=== PATIENT | female | born 1950 | race Caucasian/White ===

== ENCOUNTER 2018-03-09 14:17 | Emergency (ER) | payer BC, OTHER ==
[~2018-03-09 14:17] MED LIST: AMLO1TAB12 PO; ASCO500T8 PO; METO50TA9 PO; ROSU10TA PO
[2018-03-09 15:34] LABS: BASOPHILS % (AUTO) 0.6 % (0.0-5.0); EOSINOPHILS % (AUTO) 3.6 % (0.0-8.0); HEMATOCRIT 39.1 % (36-48); LYMPHOCYTES % (AUTO) 16.1 % (21.0-51.0); MEAN CORPUSCULAR HEMOGLOBIN 29.3 pg (27.0-33.0); MEAN CORPUSCULAR HGB CONC 33.4 g/dL (32.0-36.0); MEAN CORPUSCULAR VOLUME 87.8 fL (79-99); NEUTROPHILS % (AUTO) 73.7 % (40.0-77.0); PLATELET COUNT (AUTO) 327 K/uL (130-400); RED BLOOD CELL COUNT(AUTO) 4.46 MIL/uL (4.00-5.50); RED CELL DISTRIBUTION WIDTH 14.2 % (11.0-15.5); WHITE BLOOD COUNT (AUTO) 10.9 K/uL (4.8-10.8)
[2018-03-09 15:47] LABS: CREATININE 0.8 mg/dL (0.5-1.5); POTASSIUM 3.3 mmol/L (3.5-5.1)
[2018-03-09 15:51] LABS: APPEARANCE,URINE Clear (CLEAR); BILIRUBIN,URINE Negative (NEGATIVE); COLOR,URINE Yellow (YELLOW); GLUCOSE, URINE (UA) Negative (NEGATIVE); KETONES,URINE Negative (NEGATIVE); LEUKOCYTE ESTERASE ,URINE Moderate (NEGATIVE); NITRATE,URINE Negative (NEGATIVE); OCCULT BLOOD,URINE Trace (NEGATIVE); PH,URINE 6.5 (5.0-8.0); PROTEIN,URINE Negative (NEGATIVE)
[2018-03-09 15:52] LABS: ALBUMIN 3.5 g/dL (3.5-5.0); BILIRUBIN,TOTAL 0.3 mg/dL (0.2-1.0)
[2018-03-09 16:03] LABS: BACTERIA,URINE Rare /HPF (None Seen); RBC,URINE 0-1 /HPF (0-1)
[2018-03-09 16:05] LABS: SQUAMOUS EPITHELIAL CELL,UR Rare /HPF (0-2)
[2018-03-09 16:11] LABS: CREATINE KINASE, TOTAL 130 U/L (21-232); MYOGLOBIN 47 ng/mL (10-92); TROPONIN I < 0.04 ng/mL (0.00-0.06)
[2018-03-09 18:36] LABS: CREATINE KINASE, TOTAL 305 U/L (21-232); MYOGLOBIN 34 ng/mL (10-92); TROPONIN I < 0.04 ng/mL (0.00-0.06)
== END 2018-03-09 19:31 | disposition home or self-care (01) ==
LOC: EDH 14:17
DX: R07.89 Other chest pain (principal); R55 Syncope and collapse; R42 Dizziness and giddiness; E78.5 Hyperlipidemia, unspecified; I10 Essential (primary) hypertension; Z88.1 Allergy status to other antibiotic agents; Z88.2 Allergy status to sulfonamides; Z87.442 Personal history of urinary calculi
CPT/HCPCS: 36415; 70450; 71045; 72125; 80053; 81001; 82550; 83874; 84484; 85025; 93005

== ENCOUNTER → 2018-05-04 | Outpatient (CLI) | payer OTHER ==
[~2018-05-04] MED LIST changes: +REGADENOSON 0.4 MG/5 ML PF SYG IVP SCH
== END | disposition home or self-care (01) ==
LOC: RAH 08:57
PROVIDERS: ATTEND Family Medicine
DX: I25.119 Atherosclerotic heart disease of native coronary artery with unspecified angina pectoris (principal)
CPT/HCPCS: 78452; 93017; 96374; A9500 ×2; J2785

== ENCOUNTER → 2018-06-30 | Outpatient (CLI) | payer OTHER ==
[~2018-06-30] MED LIST changes: -REGADENOSON 0.4 MG/5 ML PF SYG IVP SCH
== END | disposition home or self-care (01) ==
LOC: RAH 09:03
PROVIDERS: ATTEND Neurological Surgery
DX: M48.02 Spinal stenosis, cervical region (principal); M47.22 Other spondylosis with radiculopathy, cervical region; M25.78 Osteophyte, vertebrae
CPT/HCPCS: 72141

== ENCOUNTER → 2018-08-04 | Outpatient (CLI) | payer OTHER ==
[~2018-08-04] MED LIST changes: +ALBU1.252 IH; -ASCO500T8 PO; +ASPI-1005 PO; +CETI-101 PO; +CHLO25TA3 PO; +CHOL100044 PO; +FLUT1AER IH; +GARL1TAB2 PO; +OMEP20TA25 PO; -ROSU10TA PO; +ROSU10TA22 PO
== END | disposition home or self-care (01) ==
LOC: OIH 09:04
PROVIDERS: ATTEND Neurological Surgery
DX: M47.812 Spondylosis without myelopathy or radiculopathy, cervical region (principal); M85.88 Other specified disorders of bone density and structure, other site; M25.78 Osteophyte, vertebrae; Z98.1 Arthrodesis status
CPT/HCPCS: 72040

== ENCOUNTER 2019-07-24 10:30 | Emergency (ER) | payer OTHER ==
[~2019-07-24 10:30] MED LIST changes: +APIX5TAB PO; +CEPH500T PO; -CETI-101 PO; +CETI-109 PO; -CHOL100044 PO; -GARL1TAB2 PO; +METO25 PO; -METO50TA9 PO
[2019-07-24] MEDS ORDERED: ASPIRIN 325 MG TABLET ONE (11:06)
[2019-07-24 11:22] LABS: BASOPHILS % (AUTO) 0.5 % (0.0-5.0); EOSINOPHILS % (AUTO) 4.4 % (0.0-8.0); LYMPHOCYTES % (AUTO) 18.6 % (21.0-51.0); MEAN CORPUSCULAR HEMOGLOBIN 28.5 pg (27.0-33.0); MEAN CORPUSCULAR HGB CONC 32.3 g/dL (32.0-36.0); MEAN CORPUSCULAR VOLUME 88.5 fL (79-99); MONOCYTES % (AUTO) 6.3 % (3.0-13.0); NEUTROPHILS % (AUTO) 69.7 % (40.0-77.0); PLATELET COUNT (AUTO) 315 K/uL (130-400); RED BLOOD CELL COUNT(AUTO) 4.52 MIL/uL (4.00-5.50); WHITE BLOOD COUNT (AUTO) 8.5 K/uL (4.8-10.8)
[2019-07-24 11:38] LABS: INR 0.87 (0.85-1.15); PARTIAL THROMBOPLASTIN TIME 24.8 SEC (26.3-35.5); PROTHROMBIN TIME 9.4 SEC (9.6-11.6)
[2019-07-24 11:45] LABS: CREATININE 0.9 mg/dL (0.5-1.5); POTASSIUM 3.4 mmol/L (3.5-5.1)
[2019-07-24 11:54] LABS: ALBUMIN 3.9 g/dL (3.5-5.0); BILIRUBIN,TOTAL 0.5 mg/dL (0.2-1.0); TOTAL PROTEIN, SERUM 7.9 g/dL (6.0-8.3)
[2019-07-24] MEDS ORDERED: IOHEXOL-350 75 ML VIAL IV ONE (12:09)
[2019-07-24 12:10] LABS: B-TYPE NATRIURETIC PEPTIDE 33 pg/mL (0-100)
== END 2019-07-24 14:48 | disposition home or self-care (01) ==
LOC: EDH 10:30
DX: R07.89 Other chest pain (principal); E78.5 Hyperlipidemia, unspecified; I10 Essential (primary) hypertension; Z88.2 Allergy status to sulfonamides
CPT/HCPCS: 36415; 71045; 71275; 76705; 80053; 82550; 83880; 84484; 85025; 85378; 85610; 85730; 93005; 99284; Q9967

== ENCOUNTER → 2020-11-19 | Outpatient (CLI) | payer MEDICARE ==
[~2020-11-19] MED LIST changes: -CETI-109 PO; +CETI-89 PO
== END | disposition home or self-care (01) ==
LOC: RAH 10:51
PROVIDERS: ATTEND Physician Assistant Medical
DX: Z12.31 Encounter for screening mammogram for malignant neoplasm of breast (principal)
CPT/HCPCS: 77067

== ENCOUNTER → 2022-03-15 | Outpatient (CLI) | payer MEDICARE ==
[~2022-03-15] MED LIST changes: +OMEP20TA20 PO; -OMEP20TA25 PO
== END | disposition home or self-care (01) ==
LOC: SHCH 10:16
PROVIDERS: ATTEND Internal Medicine Cardiovascular Disease
DX: R01.1 Cardiac murmur, unspecified (principal); E78.5 Hyperlipidemia, unspecified; I34.0 Nonrheumatic mitral (valve) insufficiency
CPT/HCPCS: 93306

== ENCOUNTER → 2023-01-11 | Outpatient (CLI) | payer MEDICARE ==
[~2023-01-11] MED LIST changes: +AMLO5TAB4 PO; +IBUP-1493 PO; +ONDA-104 PO; +TAMS-1 PO
== END | disposition home or self-care (01) ==
LOC: RAH 12:06
PROVIDERS: ATTEND Urology
DX: N20.0 Calculus of kidney (principal); M47.815 Spondylosis without myelopathy or radiculopathy, thoracolumbar region
CPT/HCPCS: 74018

== ENCOUNTER 2023-03-13 19:29 | Observation (INO) | payer MEDICARE ==
[~2023-03-13] VITALS: Ht 180.3 cm; Wt 99.8 kg
[2023-03-13] MEDS ORDERED: MORPHINE 4 MG SYG IM ONE (21:00)
[2023-03-13] MEDS ORDERED: HYDROCODONE/ACETAMINOPHEN 5/325 MG TAB PO PRN (23:00)
[2023-03-13] MEDS ORDERED: ALBUTEROL 0.083% 2.5 MG/3 ML INH IH PRN (23:00)
[2023-03-13] MEDS ORDERED: HYDRALAZINE 20MG/ML VIAL IV PRN (23:00)
[2023-03-13] MEDS ORDERED: MORPHINE 2 MG SYG IVP PRN (23:00)
[2023-03-13] MEDS ORDERED: ONDANSETRON 4MG INJ IVP PRN (23:00)
[2023-03-13] MEDS ORDERED: ACETAMINOPHEN 325 MG TAB PO PRN (23:00)
[2023-03-13 23:30] LABS: BASOPHILS # (AUTO) 0.04 K/uL (0.00-0.20); BASOPHILS % (AUTO) 0.2 % (0.0-5.0); EOSINOPHILS # (AUTO) 0.01 K/uL (0.00-0.70); EOSINOPHILS % (AUTO) 0.1 % (0.0-8.0); HEMATOCRIT 38.4 % (36-48); IMMATURE GRANULOCYTE ABSOLUTE 0.21 K/uL (0-1); LYMPHOCYTES # (AUTO) 2.4 K/uL (1.0-4.8); LYMPHOCYTES % (AUTO) 12.3 % (21.0-51.0); MEAN CORPUSCULAR HEMOGLOBIN 29.2 pg (27.0-33.0); MEAN CORPUSCULAR HGB CONC 32.8 g/dL (32.0-36.0); MEAN CORPUSCULAR VOLUME 89.1 fL (79-99); MONOCYTES # (AUTO) 1.2 K/uL (0.1-1.0); MONOCYTES % (AUTO) 6.5 % (3.0-13.0); NEUTROPHILS # (AUTO) 15.2 K/uL (1.8-7.7); NEUTROPHILS % (AUTO) 79.8 % (40.0-77.0); PLATELET COUNT (AUTO) 382 K/uL (130-400); RED BLOOD CELL COUNT(AUTO) 4.31 MIL/uL (4.00-5.50); RED CELL DISTRIBUTION WIDTH 14.5 % (11.0-15.5)
[2023-03-13 23:42] LABS: CREATININE 0.9 mg/dL (0.5-1.5); POTASSIUM 3.8 mmol/L (3.5-5.1)
[2023-03-13 23:43] LABS: INR < 0.93 (0.85-1.15); PROTHROMBIN TIME 10.4 SEC (9.6-11.6)
[2023-03-13 23:45] LABS: PARTIAL THROMBOPLASTIN TIME 24.3 SEC (26.3-35.5)
[2023-03-13 23:46] LABS: ALBUMIN 3.7 g/dL (3.5-5.0); BILIRUBIN,TOTAL 0.6 mg/dL (0.2-1.0); TOTAL PROTEIN, SERUM 7.6 g/dL (6.0-8.3)
[2023-03-14] MEDS: CEFAZOLIN SODIUM 1 GM VIAL IVPB SCH ×4 (01:28→20:59)
[2023-03-14 01:55] LABS: APPEARANCE,URINE CLEAR (CLEAR); BILIRUBIN,URINE NEGATIVE (NEGATIVE); COLOR,URINE LIGHT-YELLOW (YELLOW); GLUCOSE, URINE (UA) NEGATIVE (NEGATIVE); KETONES,URINE NEGATIVE (NEGATIVE); LEUKOCYTE ESTERASE ,URINE NEGATIVE Leu/uL (NEGATIVE); NITRATE,URINE NEGATIVE (NEGATIVE); PH,URINE 5.5 (5.0-8.0); PROTEIN,URINE NEGATIVE (NEGATIVE); UROBILINOGEN,URINE 0.2 mg/dL (0.2-1.0)
[2023-03-14 02:02] LABS: SQUAMOUS EPITHELIAL CELL,UR RARE /HPF (0-2)
[2023-03-14] MEDS ORDERED: LIDOCAINE HCL 1% 20 ML VIAL ONE (07:50)
[2023-03-14 07:56] LABS: BASOPHILS # (AUTO) 0.04 K/uL (0.00-0.20); BASOPHILS % (AUTO) 0.3 % (0.0-5.0); EOSINOPHILS # (AUTO) 0.05 K/uL (0.00-0.70); EOSINOPHILS % (AUTO) 0.4 % (0.0-8.0); HEMATOCRIT 34.8 % (36-48); IMMATURE GRANULOCYTE ABSOLUTE 0.14 K/uL (0-1); LYMPHOCYTES # (AUTO) 3.3 K/uL (1.0-4.8); LYMPHOCYTES % (AUTO) 24.1 % (21.0-51.0); MEAN CORPUSCULAR HEMOGLOBIN 28.6 pg (27.0-33.0); MEAN CORPUSCULAR HGB CONC 32.2 g/dL (32.0-36.0); MEAN CORPUSCULAR VOLUME 88.8 fL (79-99); MONOCYTES # (AUTO) 1.3 K/uL (0.1-1.0); MONOCYTES % (AUTO) 9.3 % (3.0-13.0); NEUTROPHILS # (AUTO) 8.8 K/uL (1.8-7.7); NEUTROPHILS % (AUTO) 64.9 % (40.0-77.0); PLATELET COUNT (AUTO) 357 K/uL (130-400); RED BLOOD CELL COUNT(AUTO) 3.92 MIL/uL (4.00-5.50); RED CELL DISTRIBUTION WIDTH 14.7 % (11.0-15.5); WHITE BLOOD COUNT (AUTO) 13.5 K/uL (4.8-10.8)
[2023-03-14 08:11] LABS: CREATININE 0.7 mg/dL (0.5-1.5); MAGNESIUM 2.2 mg/dL (1.80-2.40); PHOSPHORUS 3.6 mg/dL (2.5-4.9); POTASSIUM 3.6 mmol/L (3.5-5.1)
[2023-03-14] MEDS ORDERED: GADOTERATE MEGLUMINE 10 MMOL/20 ML VIAL IV ONE (11:02)
[2023-03-15] MEDS: CEFAZOLIN SODIUM 1 GM VIAL IVPB SCH (07:26)
[2023-03-15] MEDS ORDERED: CETIRIZINE HCL 5 MG TABLET PO SCH (09:00)
[2023-03-15] MEDS ORDERED: VALSARTAN PO SCH (09:00)
[2023-03-15] MEDS ORDERED: METOPROLOL TARTRATE 25 MG TAB PO SCH (09:00)
[2023-03-15] MEDS ORDERED: AMLODIPINE 5 MG TAB PO SCH (09:00)
[2023-03-15] MEDS ORDERED: NON-FORMULARY MEDICATION 1 EACH (Rosuvastatin Calcium (Crestor) 10 MG) PO SCH (09:00)
[2023-03-15] MEDS ORDERED: LOSARTAN 100 MG TABLET PO SCH (09:00)
[2023-03-15] MEDS ORDERED: TAMSULOSIN HCL 0.4 MG CAP.ER.24H PO SCH (09:00)
[2023-03-15] MEDS ORDERED: AMLODIPINE PO SCH (09:00)
[2023-03-15] MEDS ORDERED: Chlorthalidone 25 MG PO SCH (09:00)
[2023-03-15] MEDS ORDERED: PANTOPRAZOLE 40 MG TAB DR PO SCH (09:00)
[2023-03-15] MEDS ORDERED: NON-FORMULARY MEDICATION 1 EACH (Omeprazole 20 MG) PO SCH (09:00)
[2023-03-15] MEDS ORDERED: FLUTICASONE/VILANTEROL 1 EACH AER.POW.BA IH SCH (09:00)
[2023-03-15] MEDS ORDERED: NON-FORMULARY MEDICATION 1 EACH (Cetirizine HCl (Zyrtec) 10 MG) PO SCH (09:00)
[2023-03-15 11:13] VITALS: BP 128/63; PULSE 84; RESP 18; O2SAT 99
[2023-03-15] MEDS ORDERED: ATORVASTATIN 40 MG TABLET PO SCH (21:00)
== END 2023-03-15 12:15 | disposition home or self-care (01) ==
LOC: EDH 19:29 → EDHIP 22:57
PROVIDERS: ADMIT Internal Medicine Critical Care Medicine; ATTEND Internal Medicine Critical Care Medicine
DX: S80.01XA Contusion of right knee, initial encounter (principal); I48.91 Unspecified atrial fibrillation; I10 Essential (primary) hypertension; M23.91 Unspecified internal derangement of right knee; Z79.01 Long term (current) use of anticoagulants; Z86.711 Personal history of pulmonary embolism; Z86.718 Personal history of other venous thrombosis and embolism; Z87.442 Personal history of urinary calculi; W01.0XXA Fall on same level from slipping, tripping and stumbling without subsequent striking against object, initial encounter; Y92.89 Other specified places as the place of occurrence of the external cause; Y93.89 Activity, other specified; Y99.8 Other external cause status
CPT/HCPCS: 96372; 99284; 80053; 85025 ×2; 85610; 85730; 36415 ×2; 73562; 96376; 96365; 96366 ×3; 83735; 84100; 80048; 86850; 86900; 86901; 81001; 73723; 97161; 97116; G0378 ×36; J2270; J0690 ×4; A9575

== ENCOUNTER → 2024-02-29 | Outpatient (CLI) | payer MEDICARE ==
[~2024-02-29] MED LIST changes: +IOHEXOL 350 MG/ML 100ML INFUS..BTL IV ONE; +IOHEXOL-350 50ML VIAL IV ONE; +metoPROLOL tartRATE 1 MG/ML 5ML VIAL IV ONE
[2024-02-29 12:55] LABS: POTASSIUM 3.7 mmol/L (3.5-5.1)
[2024-02-29 13:02] LABS: ALBUMIN 3.5 g/dL (3.5-5.0); BILIRUBIN,TOTAL 0.7 mg/dL (0.2-1.0); TOTAL PROTEIN, SERUM 7.7 g/dL (6.0-8.3)
--- NOTE | 2024-02-29 14:19 | HMCIMG ---
CT CARDIAC ANGIO W/CONT. CCTA REASON: Other forms of dyspnea COMPARISON: None TECHNIQUE: Images are obtained through the heart in the axial plane before and during bolus IV contrast infusion, 100 cc Omnipaque 350. 2-D and 3-D multiplanar reconstruction images were then performed. The injection had to be repeated once due to motion artifact on the first sequence, total contrast volume was 200 cc. FINDINGS: This dictation is for the noncardiac findings only. Cardiac and coronary artery findings are reported separately. Visualized portions of the lungs are clear. There is normal-appearing pulmonary interstitium. There is no hilar or mediastinal lymphadenopathy. Chest wall structures appear unremarkable. IMPRESSION: 1. Unremarkable noncardiac portions of CT cardiac angiography.
--- NOTE | 2024-02-29 19:11 | CARDIOLOGY ---
RAD REPORT: CORNARY CT ANGIO RADIOLOGY REPORT: CORONARY CT ANGIOGRAPHY DATE: Feb 29, 2024 QUALITY: Excellent CLINICAL HISTORY AND INDICATION: [ CAD, chest pain ] TECHNIQUE: After obtaining a preliminary numerical control tool programmer image, contrast imaging performed on an [employer] [id number] scanner. A dedicated, limited window, coronary imaging protocol was used, with single breath-hold, retrospective ECG gating, and automated arrhythmia rejection. 100 cc of low osmolar contrast agent: Omnipaque 350 was delivered via a 18-gauge IV catheter in the right antecubital fossa, using a power injector and followed by 60 cc of normal saline bolus as a chaser. Collimated images were reformatted at 0.5 mm intervals, and sent to an offline independent workstation for interpretation, using 3D anatomic reconstructions: Curved multiplanar reconstructions, maximum intensity projections, and multiplanar imaging. 20 mg IV metoprolol was administered prior to scanning. 0.4 mg SL nitroglycerin was given. CORONARY ARTERY DESCRIPTIONS: The coronary arteries arise in normal position. Left main coronary artery: Normal caliber and long vessel that trifurcates into the LAD, ramus and LCx. No stenosis. Left anterior descending coronary artery: Normal caliber vessel and gives rise to diagonal and septal branches. Ramus intermedius artery: Normal caliber, no stenosis. Left circumflex coronary artery: Normal caliber, nondominant and gives rise to a large OM branch. There is calcified plaque in the proximal LCx with 30-40% stenosis. Right coronary artery: Large, dominant vessel giving rise to the PL and PDA branches. There is mixed calcified and noncalcified plaque in the mid RCA with 20-30% stenosis. CAD-RADs: 2, mild non-obstructive CAD. Thoracic Aorta: Normal diameter. Estelita Jones MD Cardiovascular Disease [facility] ESTELITA JONES MD Feb 29, 2024 19:11
== END | disposition home or self-care (01) ==
LOC: RAH 12:30
PROVIDERS: ATTEND Student in an Organized Health Care Education/Training Program
DX: I25.10 Atherosclerotic heart disease of native coronary artery without angina pectoris (principal); R06.09 Other forms of dyspnea
CPT/HCPCS: 75574; 80061; 80053; 36415; J3490; Q9967 ×2

== ENCOUNTER 2024-11-02 15:12 | Inpatient (IN) | payer MEDICARE ==
[~2024-11-02] VITALS: Ht 180.3 cm; Wt 108.9 kg
[~2024-11-02 15:12] MED LIST changes: -IOHEXOL 350 MG/ML 100ML INFUS..BTL IV ONE; -IOHEXOL-350 50ML VIAL IV ONE; -TAMS-1 PO; +TAMS-55 PO; -metoPROLOL tartRATE 1 MG/ML 5ML VIAL IV ONE
[2024-11-02 15:39] LABS: IMMATURE GRANULOCYTE ABSOLUTE 0.24 K/uL (0-1); NUCLEATED RED BLOOD CELLS 0.0 % (0.0-0.19); PLATELET COUNT (AUTO) 381 K/uL (130-400); RED BLOOD CELL COUNT(AUTO) 4.30 MIL/uL (4.00-5.50); RED CELL DISTRIBUTION WIDTH 16.9 % (11.0-15.5); WHITE BLOOD COUNT (AUTO) 15.0 K/uL (4.8-10.8)
[2024-11-02 15:50] LABS: CREATININE 1.0 mg/dL (0.5-1.0); GLOMERULAR FILTR. RATE CALC 60.0 mL/min (>90); GLUCOSE,RANDOM 110.0 mg/dL (70-105); SODIUM SERUM 143.0 mmol/L (136-145); UREA NITROGEN, BLOOD 21.0 mg/dL (7-18)
--- NOTE | 2024-11-02 17:45 | ERN ---
General Chief Complaint: Chest Pain Stated Complaint: SENT BY [facility] FOR A-FIB Time Seen by MD: 15:14 Source: patient History of Present Illness Initial Comments This is a 74-year-old female coming in complaining of racing heart. Per patient she was sent by testing coordinator for further evaluation. Patient does has a history of atrial fibrillation has been taking metoprolol. Allergies: Coded Allergies: corn (Unverified Allergy, Mild, 09/24/13) stuffiness Sulfa (Sulfonamide Antibiotics) (Unverified Allergy, Unknown, 09/24/13) chocolate flavor (Unverified Allergy, Unknown, 09/24/13) stuffiness milk (Unverified Allergy, Unknown, 09/24/13) stuffiness sulfamethoxazole (Unverified Allergy, Unknown, 07/24/19) tetracycline (Unverified Allergy, Unknown, 08/18/16) trimethoprim (Unverified Allergy, Unknown, 07/24/19) Home Meds Active Scripts Metoprolol Tartrate (Lopressor) 25 Mg Tab, 25 MG PO BID, #60 TAB Prov:SOWMYA JAMES MASS COMMUNICATIONS INSTRUCTOR 11/27/22 Amlodipine Besylate (Norvasc 5Mg Tab) 5 Mg Tablet, 5 MG PO DAILY, #60 TAB Prov:SOWMYA JAMES MASS COMMUNICATIONS INSTRUCTOR 11/27/22 Ondansetron HCl (Ondansetron HCl) 4 Mg Tablet, 4 MG PO TIDP PRN for VOMITING, # 20 TAB Prov:SOWMYA JAMES MASS COMMUNICATIONS INSTRUCTOR 11/27/22 Tamsulosin HCl (Flomax) 0.4 Mg Cap.er.24h, 0.4 MG PO DAILY, #10 CAPSULE.DR Prov:SOWMYA JAMES APRN 11/27/22 Ibuprofen (Motrin/Advil) 800 Mg Tab, 800 MG PO TID, #30 TAB Prov:MARK WAN MD 11/24/22 Cephalexin (Cephalexin) 500 Mg Tablet, 500 MG PO TID for 5 Days, TAB Prov:FREYA LE NP 08/09/18 Metoprolol Tartrate (Lopressor) 25 Mg Tab, 12.5 MG PO BID for 15 Days, TAB Prov:FREYA LE NP 08/09/18 Apixaban (Eliquis) 5 Mg Tablet, 5 MG PO BID for 30 Days, TAB Start from 08/15/18 Prov:FREYA LE FENCE REPAIRMAN 08/09/18 Apixaban (Eliquis) 5 Mg Tablet, 10 MG PO BID for 6 Days, TAB Prov:FREYA LE FENCE REPAIRMAN 08/09/18 Reported Medications Albuterol Sulfate (Albuterol Sulfate) 1.25 Mg/3 Ml Vial.neb, 1.25 MG IH AD PRN for SHORTNESS OF BREATH, INH 08/06/18 Omeprazole (Omeprazole) 20 Mg Tablet.dr, 20 MG PO DAILY, TAB 08/06/18 Aspirin (ASPIRIN 81MG CHEW TAB) 81 Mg Tab.chew, 81 MG PO DAILY, TAB.CHEW 08/06/18 Chlorthalidone (Chlorthalidone) 25 Mg Tablet, 25 MG PO AM, TAB 07/05/18 Fluticasone/Vilanterol (Breo Ellipta 100-25 Mcg INH) 1 Each Aer.pow.ba, 1 EACH IH AM 07/05/18 Cetirizine HCl (Zyrtec) 10 Mg Tablet, 10 MG PO DAILY, TAB 07/04/18 Amlodipine/Valsartan (Exforge 5-160 mg Tablet) 1 Each Tablet, 1 EACH PO AM, TAB 08/18/16 Rosuvastatin Calcium (Crestor) 10 Mg Tablet, 10 MG PO AM, TAB 08/18/16 Past Medical History Past Medical History: A-Fib, COPD, High Cholesterol, Hypertension Medical History Other: P.E., KIDNEY STONES Past Surgical History: Other Surgical History Other: HERNIA REPAIR Family History Family History: Negative Social History Social History: Negative ROS Dictation CONSTITUTIONAL: No chills, no fever, no weakness, no diaphoresis, no malaise. HEAD/FACE: No signs of trauma. EENT: No eye pain, no blurred vision, no tearing, no double vision, no ear pain, no ear discharge, no nose pain, no nasal congestion, no throat pain, no throat swelling, no mouth pain. RESPIRATORY: No cough, no orthopnea, no SOB, no stridor, no wheezing. CARDIOVASCULAR: No chest pain, no edema, palpitations, no syncope. GASTROINTESTINAL/ABDOMINAL: No abdominal pain, no constipation, no diarrhea, no nausea, no vomiting. GENITOURINARY: No abnormal discharge, no dysuria, no frequent urination, no hematuria. No complaints of pain in the genitals. MUSCULOSKELETAL: No back pain, no gout, no joint pain, no joint swelling, no muscle pain, no muscle stiffness, no neck pain. INTEGUMENTARY: No change in color, no change in hair/nails, no dryness, no lesion, no lumps, no rash. NEUROLOGICAL/PSYCH: No anxiety, not depressed, no emotional problem, no headache, no numbness, no pre-existing deficit, no history of seizures, no tremors, no weakness. HEMATOLOGIC/LYMPHATIC: Not anemic, no history of blood clots, no apparent bleeding, no bruising, glands not swollen. All Systems Negative, Except as Noted. Physical Exam Physical Exam Dictation VITAL SIGNS: Reviewed. GENERAL APPEARANCE: Alert, oriented x3, no acute distress, obese. HEAD AND FACE: Non-traumatic. EYES: PERRL, pink conjunctivas, eyelid no trauma, anterior chamber clear. EARS: Pinnas intact and no signs of trauma or erythema. Ear canals clear and no discharge. TMs no erythema. NOSE: No discharge, no bleeding. OROPHARYNX: Mouth normal, teeth no caries, tongue pink. Pharynx clear, no erythema. Tonsils no exudates, no abscesses noted. Mucous membrane moist. NECK: Supple, non-tender, no thyromegaly, no masses, no JVD, no bruits. BREAST: Deferred. CHEST: No tenderness, no crepitus, no paradoxical movement, no retractions. LUNGS: Clear, well-ventilated, symmetric, no rales, no wheezing, no rhonchi, no stridor, good breath sounds bilaterally. HEART: Regular rate, regular rhythm, no murmur, no gallops. VASCULAR: No peripheral edema. ABDOMEN: Soft, positive bowel sounds, nondistended, no guarding, nontender, no rebound, no masses no hepatomegaly, no splenomegaly, no Mayorga's sign, no hernias. RECTAL: Deferred. GENITAL: Deferred. NEUROLOGICAL: Normal speech, gross motor function intact, gross sensory function intact. MUSCULOSKELETAL: Neck nontender, full range of motion, back nontender, full range of motion. EXTREMITIES: Nontender, full range of motion. SKIN: Color pink, dry, no turgor, no rash, no lacerations, no abrasions, no contusions. LYMPHATICS: Deferred. Results Laboratory and Microbiology Lab and Micro Result Laboratory Tests Test 11/02/24 15:32 White Blood Count 15.0 K/uL (4.8-10.8) H Red Blood Count 4.30 MIL/uL (4.00-5.50) Hemoglobin 11.4 g/dL (12.0-16.0) L Hematocrit 36.4 % (36-48) Mean Corpuscular Volume 84.7 fL (79-99) Mean Corpuscular Hemoglobin 26.5 pg (27.0-33.0) L Mean Corpuscular Hemoglobin Concent 31.3 g/dL (32.0-36.0) L Red Cell Distribution Width 16.9 % (11.0-15.5) H Platelet Count 381 K/uL (130-400) Mean Platelet Volume 9.1 fL (7.5-10.5) Immature Granulocyte % (Auto) 1.6 % (0-1) H Neutrophils (%) (Auto) 65.7 % (40.0-77.0) Lymphocytes (%) (Auto) 19.0 % (21.0-51.0) L Monocytes (%) (Auto) 9.8 % (3.0-13.0) Eosinophils (%) (Auto) 3.5 % (0.0-8.0) Basophils (%) (Auto) 0.4 % (0.0-5.0) Neutrophils # (Auto) 9.9 K/uL (1.8-7.7) H Lymphocytes # (Auto) 2.9 K/uL (1.0-4.8) Monocytes # (Auto) 1.5 K/uL (0.1-1.0) H Eosinophils # (Auto) 0.53 K/uL (0.00-0.70) Basophils # (Auto) 0.06 K/uL (0.00-0.20) Absolute Immature Granulocyte (auto 0.24 K/uL (0-1) Nucleated Red Blood Cells 0.0 % (0.0-0.19) Sodium Level 143 mmol/L (136-145) Potassium Level 4.1 mmol/L (3.5-5.1) Chloride Level 108 mmol/L (101-111) Carbon Dioxide Level 30 mmol/L (21-32) Blood Urea Nitrogen 21 mg/dL (7-18) H Creatinine 1.0 mg/dL (0.5-1.0) Glomerular Filtration Rate Calc 60 mL/min (>90) Random Glucose 110 mg/dL (70-105) H Total Calcium 9.0 mg/dL (8.5-10.1) Magnesium Level 2.10 mg/dL (1.80-2.40) Troponin I High Sensitivity 7 ng/L (4-50) Labs Reviewed?: Yes EKG/XRAY/US/CT/MRI EKG Comment 11/02/2024 time 3:11 p.m. Ventricular rate [address] wave elevation or depression X-RAY Comment Chest x-ray- NAD MDM MDM: Differential diagnosis: Atrial fibrillation, chest pain Rationale: Tests considered and ordered secondary to shared decision making include: labs, ECG and radiology Previous outside records reviewed: Old ER visits. Risk of complication and/or morbidity or mortality of patient management: None Medications-Per medication reconciliation Need for hospitalization: Patient does meet criteria for hospitalization. Need for emergency major/minor surgery: No There are no social concerns with this patient. Prescription drug management Prescriptions will include symptomatic care Patient's prior external medical records from other ER visits were reviewed by me as indicated. Prior testing and results from previous visits were reviewed. Prior tests were taken into account with medical decision making and resource utilization, independent historian/historians were used to obtain complete medical history. I independently interpreted the test that were performed, results were reviewed by me and considered findings on radiology if ordered. Medical management and examination interpretation discussions were had by me with other qualified healthcare professionals as indicated for the patient's care. Patient will be admitted under the care of [facility] for ongoing management ED Course Orders Procedure Category Date Status Time Cbc With Differential LAB 11/02/24 Complete 15:18 Chest 1vw RAD 11/02/24 Taken 15:18 12 Lead Ekg Tracing- EKG 11/02/24 Logged Technical 15:18 Magnesium LAB 11/02/24 Complete 15:18 Troponin I High LAB 11/02/24 Complete Sensitivity 15:18 Urinalysis Profile LAB 11/02/24 Logged 15:18 Basic Metabolic Panel LAB 11/02/24 Complete 15:18 Vital Signs Date Time Temp Pulse Resp B/P (MAP) Pulse Ox O2 Delivery O2 Flow Rate FiO2 11/02/24 15:14 99.3 95 19 111/76 96 0 DX & DISP Disposition: Inpatient Decision to Admit Time: 18:02 Departure Impression: Primary Impression: Atrial fibrillation Condition: Stable Referrals: ESTHER YORK MD (PCP) LASHAWN RIGGS MD Nov 02, 2024 17:45
--- NOTE | 2024-11-02 19:45 | HP ---
[facility] HISTORY & PHYSICAL Date Patient Seen: Nov 02, 2024 Time of Visit: 19:44 Supervising Physician: Hugo Douglass MD Primary Care Physician: Leroy Gutierrez. Outpatient Specialists: [ ] Inpatient Consults: Cardiology: Dr. Kody Jones PROBLEM LIST: AFib RVR on initial admission, now controlled rate. Leukocytosis suspected from the urinary tract source. UTI. Hypertension. Hypercholesterolemia. COPD compensated. HPI: This is a 74-year-old female patient who has past medical history that is significant for hypertension, hyperlipidemia, COPD and AFib. The patient AFib is followed by [facility] in the outpatient setting. Per the patient report, since yesterday in the late afternoon she was alerted by her apple watch regarding arrhythmias. The patient took her metoprolol succinate as scheduled and was later taking metoprolol tartrate prescribed to her on a as needed basis for control of her AFib events. Per the patient report, after taking multiple doses totaling approximately 200 mg of metoprolol tartrate in the past 24 hours, she decided to called her pharmacy customer care specialist's knowing that the office was soon to close. The patient was advised to come into the emergency department for further evaluation and management of her condition. Upon initial workup in the emergency department, vital signs obtained showed controlled rate of 95. Laboratory data obtained showed a elevated WBC of 15.0 H&H and platelet count was unremarkable. Chemistry panel showed no major derangement. Troponin was negative. Urinalysis showed suspicion for a urinary tract infection. Chest x- ray did not show any acute airspace disease. The patient was subsequently admitted for further inpatient evaluation and management of her condition. At the time of my visit, the patient remained in the emergency department awaiting bed assignment. No other complaint. PAST MEDICAL HX: see above PAST SURGICAL HX: noncontributory SOCIAL HISTORY: No tobacco, ETOH, or illicit drug use Coded Allergies: corn (Unverified Allergy, Mild, 09/24/13) stuffiness Sulfa (Sulfonamide Antibiotics) (Unverified Allergy, Unknown, 09/24/13) chocolate flavor (Unverified Allergy, Unknown, 09/24/13) stuffiness milk (Unverified Allergy, Unknown, 09/24/13) stuffiness sulfamethoxazole (Unverified Allergy, Unknown, 07/24/19) tetracycline (Unverified Allergy, Unknown, 08/18/16) trimethoprim (Unverified Allergy, Unknown, 07/24/19) REVIEW OF SYSTEMS: 12 point ROS reviewed with patient. Pertinent positives mentioned above. Otherwise negative. PHYSICAL EXAM: GENERAL: Alert, weak, awake oriented x 3 HEENT: EOMI, Sclera non icteric, moist mucosa NECK: Supple, no JVD, trachea midline LUNGS: Clear breath sounds bilaterally. No wheezes HEART: Regular rate and rhythm. Normal S1 and S2, without murmurs ABD: Abdomen soft, nontender. Bowel sounds present EXT: No clubbing cyanosis or edema NEURO: Alert and oriented to person, follows commands Vital Signs (last 8hr) Date Time Temp Pulse Resp B/P (MAP) Pulse Ox O2 Delivery O2 Flow Rate FiO2 11/02/24 15:14 99.3 95 19 111/76 96 0 LABS: Hematology Labs: Test 11/02/24 15:32 Range/Units White Blood Count 15.0 H 4.8-10.8 K/uL Red Blood Count 4.30 4.00-5.50 MIL/uL Hemoglobin 11.4 L 12.0-16.0 g/dL Hematocrit 36.4 36-48 % Mean Corpuscular Volume 84.7 79-99 fL Mean Corpuscular Hemoglobin 26.5 L 27.0-33.0 pg Mean Corpuscular Hemoglobin Concent 31.3 L 32.0-36.0 g/dL Red Cell Distribution Width 16.9 H 11.0-15.5 % Platelet Count 381 130-400 K/uL Mean Platelet Volume 9.1 7.5-10.5 fL Immature Granulocyte % (Auto) 1.6 H 0-1 % Neutrophils (%) (Auto) 65.7 40.0-77.0 % Lymphocytes (%) (Auto) 19.0 L 21.0-51.0 % Monocytes (%) (Auto) 9.8 3.0-13.0 % Eosinophils (%) (Auto) 3.5 0.0-8.0 % Basophils (%) (Auto) 0.4 0.0-5.0 % Neutrophils # (Auto) 9.9 H 1.8-7.7 K/uL Lymphocytes # (Auto) 2.9 1.0-4.8 K/uL Monocytes # (Auto) 1.5 H 0.1-1.0 K/uL Eosinophils # (Auto) 0.53 0.00-0.70 K/uL Basophils # (Auto) 0.06 0.00-0.20 K/uL Absolute Immature Granulocyte (auto 0.24 0-1 K/uL Nucleated Red Blood Cells 0.0 0.0-0.19 % Chemistry Labs: Test 11/02/24 15:32 Range/Units Sodium Level 143 136-145 mmol/L Potassium Level 4.1 3.5-5.1 mmol/L Chloride Level 108 101-111 mmol/L Carbon Dioxide Level 30 21-32 mmol/L Blood Urea Nitrogen 21 H 7-18 mg/dL Creatinine 1.0 0.5-1.0 mg/dL Glomerular Filtration Rate Calc 60 >90 mL/min Random Glucose 110 H 70-105 mg/dL Total Calcium 9.0 8.5-10.1 mg/dL Magnesium Level 2.10 1.80-2.40 mg/dL Troponin I High Sensitivity 7 4-50 ng/L DIAGNOSTICS / RADIOLOGY RESULTS: [ ] PLAN Admit inpatient status, to PCCU. Cardiac diet. We will review and reconcile medication list once they become available. Continue monitoring the heart rate for recurring a arrhythmias. Consult cardiology. We will request urine sample sent for culture. Start Rocephin 1 g IV daily. Repeat surveillance labs in the morning. Monitor the patient's progress and response to management. Continue to provide general supportive care, GI and DVT prophylaxis. Further orders per attending MD and hospital course. NEURO: Minimize central acting medications as possible. Maintain fall precautions, adequate lighting during the day PULMONARY: Supplemental 02 as needed. Maintain aspiration precautions at all times CARDIOVASCULAR: Follow hemodynamics. Vital signs per facility protocol GI & NUTRITION: Continue with nutritional support. Continue stool softeners and laxatives as needed. KIDNEYS & ELECTROLYTES: Strict monitoring of intake, output and overall fluid balance. Avoid nephrotoxic medications to the extent possible. Medications to be dosed according to renal function. Monitor electrolytes and replace as needed ENDOCRINE: Maintain blood glucose between 100-180 at all times. Hypoglycemia protocol in place INFECTIOUS DISEASE: Trend temperature, WBC and procalcitonin level Follow cultures, deescalate antibiotics as soon as possible. Panculture if new onset fever ONCOLOGY/HEMATOLOGY/COAGULATION: Monitor for s/s of bleeding Monitor hemoglobin, coagulation studies as needed SKIN: Pressure ulcer prevention per facility protocol Specialty mattress ORTHO/REHAB: Continue PT/OT Prophylaxis: Continue GI and DVT prophylaxis Code Status: Full Resuscitation Disposition: TBD Other: Patient was seen by me. Supervising YONNY Monique Dr., NP Nov 02, 2024 19:45
[2024-11-02] MEDS ORDERED: LACTULOSE 20 GM/30 ML UDCUP PO PRN (20:00)
[2024-11-02 20:58] LABS: APPEARANCE,URINE CLEAR (CLEAR); GLUCOSE, URINE (UA) NEGATIVE (NEGATIVE); LEUKOCYTE ESTERASE ,URINE 25 Leu/uL (NEGATIVE); NITRATE,URINE NEGATIVE (NEGATIVE); OCCULT BLOOD,URINE +- (TRACE) (NEGATIVE)
[2024-11-02 20:59] LABS: ADD UA MICROSCOPIC YES
[2024-11-02] MEDS ORDERED: ATOR40TA71 PO (22:28)
[2024-11-02] MEDS ORDERED: AMLO-387 PO (22:28)
[2024-11-02] MEDS ORDERED: HYDR12.54 PO (22:28)
[2024-11-02] MEDS ORDERED: OMEP40CA21 PO (22:28)
[2024-11-02] MEDS ORDERED: METO-391 PO (22:28)
[2024-11-02] MEDS ORDERED: APIX5TAB PO (22:28)
[2024-11-02] MEDS ORDERED: CETI10CA5 PO (22:28)
[2024-11-03 04:05] VITALS: BP 137/77; PULSE 77; RESP 16; TEMP 98.9
[2024-11-03 07:09] LABS: IMMATURE GRANULOCYTE ABSOLUTE 0.15 K/uL (0-1); NUCLEATED RED BLOOD CELLS 0.0 % (0.0-0.19); PLATELET COUNT (AUTO) 323 K/uL (130-400); RED BLOOD CELL COUNT(AUTO) 3.81 MIL/uL (4.00-5.50); RED CELL DISTRIBUTION WIDTH 17.1 % (11.0-15.5); WHITE BLOOD COUNT (AUTO) 11.1 K/uL (4.8-10.8)
[2024-11-03 07:10] VITALS: BP 130/90; PULSE 90; RESP 16; TEMP 99.1; O2SAT 94
--- NOTE | 2024-11-03 07:10 | NUR ---
Assumed patients care. Home medication have been reviewed, not yet reconsiled.
[2024-11-03 07:20] LABS: CREATININE 0.6 mg/dL (0.5-1.0); GLOMERULAR FILTR. RATE CALC 95.0 mL/min (>90); GLUCOSE,RANDOM 92.0 mg/dL (70-105); SODIUM SERUM 141.0 mmol/L (136-145); UREA NITROGEN, BLOOD 17.0 mg/dL (7-18)
[2024-11-03] MEDS: ENOXAPARIN SODIUM 30 MG/0.3 ML SQ SCH (09:25)
--- NOTE | 2024-11-03 09:37 | EKG ---
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
--- NOTE | 2024-11-03 10:02 | NUR ---
patient verbalized she wants to go home. I notify Mr. Khalif HOWARD for [employer] [facility]. No new orders.
--- NOTE | 2024-11-03 11:07 | NUR ---
Called Dr. Keesha Jones , no answer. Left a voicemail.
--- NOTE | 2024-11-03 11:38 | NUR ---
Called [facility] for cardiology consult. Spoke to conveyor operator pit clerk. Gave her details of patient. Will wait for call back from Marble Cutter Operator chandler.
--- NOTE | 2024-11-03 13:29 | PN ---
[facility] PROGRESS NOTE Date Patient Seen: Nov 03, 2024 Time of Visit: 13:21 Supervising Physician: [Dr Douglass Primary Care Physician: Leroy Gutierrez. Outpatient Specialists: [ ] Inpatient Consults: Cardiology: Dr. Kody Jones PROBLEM LIST: AFib RVR on initial admission, now controlled rate. Leukocytosis suspected from the urinary tract source. UTI. Hypertension. Hypercholesterolemia. COPD compensated. PLAN SUMMARY: Supplemental oxygen as needed Telemetry monitoring Continue Rocephin Follow urine cultures and modify antibiotics accordingly Continue amlodipine Continue losartan Continue Eliquis Continue atorvastatin Continue metoprolol succinate Pending cardiology evaluation and recommendation Dispo: Home once cleared by cardio INTERVAL HISTORY: This is a 74-year-old female patient who has past medical history that is significant for hypertension, hyperlipidemia, COPD and AFib. The patient AFib is followed by [facility] in the outpatient setting. Per the patient report, since yesterday in the late afternoon she was alerted by her apple watch regarding arrhythmias. The patient took her metoprolol succinate as scheduled and was later taking metoprolol tartrate prescribed to her on a as needed basis for control of her AFib events. Per the patient report, after taking multiple doses totaling approximately 200 mg of metoprolol tartrate in the past 24 hours, she decided to called her intensive care unit nurse's knowing that the office was soon to close. The patient was advised to come into the emergency department for further evaluation and management of her condition. Upon initial workup in the emergency department, vital signs obtained showed controlled rate of 95. Laboratory data obtained showed a elevated WBC of 15.0 H&H and platelet count was unremarkable. Chemistry panel showed no major derangement. Troponin was negative. Urinalysis showed suspicion for a urinary tract infection. Chest x- ray did not show any acute airspace disease. The patient was subsequently admitted for further inpatient evaluation and management of her condition. At the time of my visit, the patient remained in the emergency department awaiting bed assignment. No other complaint. 11/03 - patient is seen sitting up in a stretcher in the emergency department does not appear to be in any acute distress at this time. Patient continues on normal sinus rhythm at this time. Patient reports she converted yesterday about 6:00 p.m.. Patient reports she is waiting for the intensive care unit nurse to see her as she wants to go home. No acute changes reported overnight. Vital signs are stable. Labs show white count trended down today. Patient continues on Rocephin for acute cystitis. Continue current treatment plan for now. We will follow urine cultures and modify antibiotics accordingly. Patient reports she had some studies scheduled in the coming weeks and wanted to speak to Cardiology to see if they wanted to have them done while she is here. We will defer to cardio. We will plan to DC home if okay with Cardiology. REVIEW OF SYSTEMS: 12 point ROS reviewed with patient. Pertinent positives mentioned above. Otherwise negative. PHYSICAL EXAM: GENERAL: Alert, weak, awake oriented x 3 HEENT: EOMI, Sclera non icteric, moist mucosa NECK: Supple, no JVD, trachea midline LUNGS: Clear breath sounds bilaterally. No wheezes HEART: Regular rate and rhythm. Normal S1 and S2, without murmurs ABD: Abdomen soft, nontender. Bowel sounds present EXT: No clubbing cyanosis or edema NEURO: Alert and oriented to person, follows commands Vital Signs (last 8hr) Date Time Temp Pulse Resp B/P (MAP) Pulse Ox O2 Delivery O2 Flow Rate FiO2 11/03/24 07:10 99.1 90 16 130/90 94 Room Air* 0 21 LABS: Hematology Labs: Test 11/03/24 06:54 Range/Units White Blood Count 11.1 #H 4.8-10.8 K/uL Red Blood Count 3.81 L 4.00-5.50 MIL/uL Hemoglobin 10.1 L 12.0-16.0 g/dL Hematocrit 32.7 L 36-48 % Mean Corpuscular Volume 85.8 79-99 fL Mean Corpuscular Hemoglobin 26.5 L 27.0-33.0 pg Mean Corpuscular Hemoglobin Concent 30.9 L 32.0-36.0 g/dL Red Cell Distribution Width 17.1 H 11.0-15.5 % Platelet Count 323 130-400 K/uL Mean Platelet Volume 9.3 7.5-10.5 fL Immature Granulocyte % (Auto) 1.3 H 0-1 % Neutrophils (%) (Auto) 68.0 40.0-77.0 % Lymphocytes (%) (Auto) 15.6 L 21.0-51.0 % Monocytes (%) (Auto) 10.2 3.0-13.0 % Eosinophils (%) (Auto) 4.5 0.0-8.0 % Basophils (%) (Auto) 0.4 0.0-5.0 % Neutrophils # (Auto) 7.6 1.8-7.7 K/uL Lymphocytes # (Auto) 1.7 1.0-4.8 K/uL Monocytes # (Auto) 1.1 H 0.1-1.0 K/uL Eosinophils # (Auto) 0.50 0.00-0.70 K/uL Basophils # (Auto) 0.04 0.00-0.20 K/uL Absolute Immature Granulocyte (auto 0.15 0-1 K/uL Nucleated Red Blood Cells 0.0 0.0-0.19 % Red Blood Cell Morphology See comments Chemistry Labs: Test 11/03/24 06:54 11/02/24 15:32 Range/Units Sodium Level 141 136-145 mmol/L Potassium Level 3.9 3.5-5.1 mmol/L Chloride Level 107 101-111 mmol/L Carbon Dioxide Level 28 21-32 mmol/L Blood Urea Nitrogen 17 7-18 mg/dL Creatinine 0.6 0.5-1.0 mg/dL Glomerular Filtration Rate Calc 95 >90 mL/min Random Glucose 92 70-105 mg/dL Total Calcium 8.9 8.5-10.1 mg/dL Magnesium Level 2.20 1.80-2.40 mg/dL Procalcitonin < 0.05 L 0.05-0.5 ng/mL Troponin I High Sensitivity 7 4-50 ng/L DIAGNOSTICS / RADIOLOGY RESULTS: [ ] PLAN NEURO: Minimize central acting medications as possible. Maintain fall precautions, adequate lighting during the day PULMONARY: Supplemental 02 as needed. Maintain aspiration precautions at all times CARDIOVASCULAR: Follow hemodynamics. Vital signs per facility protocol GI & NUTRITION: Continue with nutritional support. Continue stool softeners and laxatives as needed. KIDNEYS & ELECTROLYTES: Strict monitoring of intake, output and overall fluid balance. Avoid nephrotoxic medications to the extent possible. Medications to be dosed according to renal function. Monitor electrolytes and replace as needed ENDOCRINE: Maintain blood glucose between 100-180 at all times. Hypoglycemia protocol in place INFECTIOUS DISEASE: Trend temperature, WBC and procalcitonin level Follow cultures, deescalate antibiotics as soon as possible. Panculture if new onset fever ONCOLOGY/HEMATOLOGY/COAGULATION: Monitor for s/s of bleeding Monitor hemoglobin, coagulation studies as needed SKIN: Pressure ulcer prevention per facility protocol Specialty mattress ORTHO/REHAB: Continue PT/OT Prophylaxis: Continue GI and DVT prophylaxis Code Status: Full Resuscitation Disposition: Home once cleared by Cardiology ATTESTATION BY PHYSICIAN I have evaluated the patient chart, medical records, and spoke with appropriate staff. I reviewed the documentation, medical decision making, and treatment plan as noted by the mid-level provider above. I agree with the findings and plan of care. Hugo Douglass MD,[facility] [employer]IV[employer] MANAGEMENT CONSULTANT Nov 03, 2024 13:29
--- NOTE | 2024-11-03 14:56 | HMCIMG ---
EXAM: CR Chest, 1 View. CLINICAL HISTORY: Leukocytosis COMPARISON: None provided. FINDINGS: LUNGS: There is no mass, infiltrate, or acute pulmonary abnormality. PLEURAL SPACES: No pleural effusion or pneumothorax. MEDIASTINUM: The cardiomediastinal silhouette is within normal limits. BONES: No acute osseous abnormality. IMPRESSION: No acute cardiopulmonary pathology is evident. /Pep
[2024-11-03] MEDS ORDERED: amLODIPine 5 MG TAB PO SCH (21:00)
[2024-11-04] MEDS ORDERED: NON-FORMULARY MEDICATION 1 EACH (Omeprazole 1 CAP) PO SCH (09:00)
== END 2024-11-03 13:30 | disposition left against medical advice (07) | DRG 309 ==
LOC: EDH 15:12 → UNDOADMIN 19:32 → EDHIP 19:32 → UNDOADMIN 19:33 → EDHIP 19:33 → UNDODISIN 11-03 13:30
PROVIDERS: ADMIT Internal Medicine Critical Care Medicine; ATTEND Internal Medicine Critical Care Medicine
DX: I48.91 Unspecified atrial fibrillation (principal); N39.0 Urinary tract infection, site not specified; E78.00 Pure hypercholesterolemia, unspecified; I10 Essential (primary) hypertension; E78.5 Hyperlipidemia, unspecified; J44.9 Chronic obstructive pulmonary disease, unspecified; Z87.442 Personal history of urinary calculi; Z79.01 Long term (current) use of anticoagulants; Z88.2 Allergy status to sulfonamides; Z79.899 Other long term (current) drug therapy
CPT/HCPCS: 36415; 71045; 80048; 81001; 83735; 84145; 84443; 84484; 85025; 87086; 93005; 99285; G0378; J0696; J1650; J2470